=== PATIENT | male | born 1965 | race Caucasian/White ===

== ENCOUNTER → 2021-06-21 | Outpatient (CLI) | payer OTHER | LOC: EXRD 15:26 | DX: N17.9 Acute kidney failure, unspecified (principal); N28.89 Other specified disorders of kidney and ureter | CPT/HCPCS: 76775 ==

== ENCOUNTER → 2021-06-21 | Outpatient (CLI) | payer OTHER ==
[2021-06-21 17:21] LABS: HEMOGLOBIN 15.9 gm/dl (14.0-17.5); RED BLOOD COUNT 5.68 M/UL (4.20-5.50); WHITE BLOOD COUNT 7.7 K/UL (4.5-11.0)
[2021-06-21 17:36] LABS: BUN/CREATININE RATIO 18 (0-10)
== END ==
LOC: LAB 16:29
PROVIDERS: Internal Medicine Nephrology
DX: N17.9 Acute kidney failure, unspecified (principal); E78.5 Hyperlipidemia, unspecified
CPT/HCPCS: 36415; 80053; 82550; 82570; 84100; 84156; 85027; 89050

== ENCOUNTER → 2021-07-07 | Outpatient (CLI) | payer OTHER | LOC: CT 08:46 | DX: C64.1 Malignant neoplasm of right kidney, except renal pelvis (principal); C79.72 Secondary malignant neoplasm of left adrenal gland; C79.71 Secondary malignant neoplasm of right adrenal gland | CPT/HCPCS: 74170; Q9967 ==

== ENCOUNTER → 2021-07-26 | Outpatient (CLI) | payer OTHER | LOC: NM 07:35 | DX: C64.9 Malignant neoplasm of unspecified kidney, except renal pelvis (principal); E78.5 Hyperlipidemia, unspecified; Z87.442 Personal history of urinary calculi; G43.919 Migraine, unspecified, intractable, without status migrainosus | CPT/HCPCS: 36415; 78306; 82565; A9503; Q9967 ==

== ENCOUNTER → 2021-08-02 | Outpatient (CLI) | payer OTHER ==
[2021-08-02 14:39] LABS: BUN/CREATININE RATIO 19 (0-10)
== END ==
LOC: LAB 13:10
PROVIDERS: Internal Medicine Nephrology
DX: N17.9 Acute kidney failure, unspecified (principal)
CPT/HCPCS: 36415; 80053

== ENCOUNTER → 2021-08-03 | Outpatient (CLI) | payer OTHER | LOC: LAB 14:44 | DX: N17.9 Acute kidney failure, unspecified (principal) | CPT/HCPCS: 82570; 84156 ==

== ENCOUNTER → 2021-09-12 | Outpatient (CLI) | payer OTHER | LOC: EXRD 13:36 | DX: J93.9 Pneumothorax, unspecified (principal); R91.8 Other nonspecific abnormal finding of lung field | CPT/HCPCS: 71046 ==

== ENCOUNTER → 2021-09-22 | Outpatient (CLI) | payer OTHER | LOC: NM 08:10 | DX: C64.9 Malignant neoplasm of unspecified kidney, except renal pelvis (principal); C78.00 Secondary malignant neoplasm of unspecified lung; C79.72 Secondary malignant neoplasm of left adrenal gland; R91.8 Other nonspecific abnormal finding of lung field; E89.6 Postprocedural adrenocortical (-medullary) hypofunction; R59.0 Localized enlarged lymph nodes; C79.89 Secondary malignant neoplasm of other specified sites; Z90.89 Acquired absence of other organs; Z90.5 Acquired absence of kidney | CPT/HCPCS: 71250; 78306; A9503 ==

== ENCOUNTER → 2021-11-02 | Outpatient (CLI) | payer OTHER | LOC: LAB 13:22 | PROVIDERS: Internal Medicine Medical Oncology | DX: C78.00 Secondary malignant neoplasm of unspecified lung (principal); C79.70 Secondary malignant neoplasm of unspecified adrenal gland; C64.9 Malignant neoplasm of unspecified kidney, except renal pelvis | CPT/HCPCS: 36415; 80048 ==

== ENCOUNTER → 2021-12-29 | Outpatient (CLI) | payer OTHER | LOC: NM 09-21 09:30 → CT 09-22 14:00 → NM 09-26 08:10 → CT 12:55 | DX: C78.00 Secondary malignant neoplasm of unspecified lung (principal); C79.70 Secondary malignant neoplasm of unspecified adrenal gland; C64.9 Malignant neoplasm of unspecified kidney, except renal pelvis | CPT/HCPCS: 71250 ==

== ENCOUNTER → 2022-01-04 | Outpatient (CLI) | payer OTHER | LOC: LAB 11:36 | PROVIDERS: Internal Medicine Nephrology | DX: N17.9 Acute kidney failure, unspecified (principal) | CPT/HCPCS: 36415; 80053 ==

== ENCOUNTER → 2022-02-21 | Outpatient (CLI) | payer OTHER | LOC: LAB 13:14 | PROVIDERS: Internal Medicine Nephrology | DX: N17.9 Acute kidney failure, unspecified (principal) | CPT/HCPCS: 36415; 80053; 81001 ==

== ENCOUNTER → 2022-03-23 | Outpatient (CLI) | payer OTHER | LOC: KOH-I 10:29 | DX: C78.00 Secondary malignant neoplasm of unspecified lung (principal); C79.70 Secondary malignant neoplasm of unspecified adrenal gland; C64.9 Malignant neoplasm of unspecified kidney, except renal pelvis; N20.1 Calculus of ureter | CPT/HCPCS: 71250; 74176 ==

== ENCOUNTER → 2022-05-30 | Outpatient (CLI) | payer OTHER ==
[~2022-05-30] MED LIST: ATORVASTATIN CA20 MG PO; CLINDAMYCIN HC300 MG PO; ELIQUIS 5 MG TAB5 MG PO; ELIQUIS5 MG PO; EUTHYROX125 MCG PO; FAMOTIDINE20 MG PO; LACTINEX PO; LEVOFLOXACIN750 MG PO; LIDOCAINE1 EAC1 TP; LOPRESSOR 25 MG25 MG PO; METFORMIN HCL500 MG PO; PREDNISONE10 MG PO; PROMETHAZINE12.5 M1 PO
== END ==
LOC: LAB 15:51
PROVIDERS: Internal Medicine Nephrology
DX: N17.9 Acute kidney failure, unspecified (principal)
CPT/HCPCS: 80053; 82570; 84156